=== PATIENT | female | born 1975 | race Hispanic/Latino ===

== ENCOUNTER 2018-03-27 18:00 | Outpatient (CLI) | payer BC | END 2018-03-27 18:01 | disposition home or self-care (01) | LOC: SLEEPLAB 18:00 | PROVIDERS: ATTEND Family Medicine | DX: G47.33 Obstructive sleep apnea (adult) (pediatric) (principal); R53.83 Other fatigue; R06.83 Snoring; I10 Essential (primary) hypertension; E66.9 Obesity, unspecified; Z68.41 Body mass index [BMI] 40.0-44.9, adult | CPT/HCPCS: 95806 ==

== ENCOUNTER 2018-03-28 15:14 | Outpatient (CLI) | payer BC | END 2018-03-28 15:15 | disposition home or self-care (01) | LOC: BICMAMMO 15:14 | PROVIDERS: ATTEND Family Medicine | DX: Z12.31 Encounter for screening mammogram for malignant neoplasm of breast (principal) | CPT/HCPCS: 77063; 77067 ==

== ENCOUNTER 2018-06-10 11:09 | Outpatient (CLI) | payer BC ==
[2018-06-10 12:52] LABS: #Basophils 0.1 thou/uL (0.0-0.2); #Eosinphils 0.1 thou/uL (0.0-0.7); #Monocytes 0.6 thou/uL (0.11-0.59); #Neutrophils 6.7 thou/uL (1.40-6.50); %Basophils 0.6 % (0.0-1.0); %Eosinophils 0.9 % (0.0-10.0); %Lymphocytes 35.2 % (21.0-51.0); %Neutrophils 58.3 % (42.0-75.0); Hemoglobin 13.8 g/dL (12.0-16.0); Mean Corpuscular HGB CONC 33.7 g/dL (32.0-36.0); Mean Corpuscular Hemoglobin 30.1 pg (27.0-31.0); Mean Corpuscular Volume 89.4 fL (78.0-98.0); Mean Platelet Volume 6.4 fL (7.4-10.4); Platelet Count 414 thou/uL (130-400); Red Blood Cell (RBC) Count 4.59 mill/uL (4.20-5.40); White Blood Cell (WBC) Count 11.5 thou/uL (4.8-10.8)
[2018-06-10 13:36] LABS: BHCG - Serum Negative (NEGATIVE); Pregs Control Background? CLEAR/WHITE (CLR/WHITE); Pregs Control Bar Appear? YES (CONTROL BAR)
--- NOTE | 2018-06-10 21:27 | EKG ---
Test Reason : Blood Pressure : / mmHG Vent. Rate : 070 BPM Atrial Rate : 070 BPM P-R Int : 132 ms QRS Dur : 098 ms QT Int : 426 ms P-R-T Axes : 026 098 051 degrees QTc Int : 460 ms Normal sinus rhythm Rightward axis Borderline ECG No previous ECGs available Confirmed by DANIEL SANTIAGO, DR. Vasquez ([id number]) on 06/10/2018 9:26:26 PM Referred By: VELMA Confirmed By:DR. Pedro SANCHEZ MD
== END 2018-06-10 11:10 | disposition home or self-care (01) ==
LOC: LABBT 11:09
PROVIDERS: ATTEND Surgery
DX: Z01.818 Encounter for other preprocedural examination (principal); D17.9 Benign lipomatous neoplasm, unspecified
CPT/HCPCS: 84703; 85025; 93005; 93010

== ENCOUNTER 2018-06-13 09:34 | Day surgery (SDC) | payer BC ==
[2018-06-10 12:11] VITALS: BMI 42.9
[2018-06-13] MEDS ORDERED: Bupivacaine/Epinephrine 0.25% 30 ML VIAL ONE (11:26)
[2018-06-13] MEDS ORDERED: Lidocaine 1% PF 5 ML VIAL ONE (11:27)
[2018-06-13] MEDS ORDERED: Fentanyl 100 MCG/2 ML VIAL ONE (11:27)
[2018-06-13] MEDS ORDERED: PHENYLEPHRINE-NS 100 MCG/ML 10 ML SYRINGE ONE (11:27)
[2018-06-13] MEDS ORDERED: PROPOFOL 200 MG/20 ML VIAL ONE (11:27)
[2018-06-13] MEDS ORDERED: Glycopyrrolate 0.2 MG/ML 5 ML SYRINGE ONE (11:27)
[2018-06-13] MEDS ORDERED: Ketorolac Tromethamine 30 MG/ML VIAL ONE (11:27)
[2018-06-13] MEDS ORDERED: Ondansetron PF 4 MG/2 ML Vial ONE (11:27)
[2018-06-13] MEDS ORDERED: Dexamethasone 20 MG/5 ML VIAL ONE (11:27)
[2018-06-13] MEDS ORDERED: Rocuronium Bromide 10 MG/ML (10ML VIAL) ONE (11:27)
[2018-06-13] MEDS ORDERED: HYDROcodone/Acetaminophen 5/325 mg Tablet ONE (13:33)
--- NOTE | 2018-06-16 11:14 | OP ---
DATE OF PROCEDURE: 06/13/2018 PREOPERATIVE DIAGNOSIS: Lipoma, left hip. PROCEDURE PERFORMED: Excisional biopsy. INDICATIONS: This is a 42-year-old female with a painful enlarging soft tissue mass of the left lateral hip. FINDINGS: It was a very deep multilobular lipoma, measured 5 x 5 x 3 cm. It is approximately 2 cm deep to the skin, but not involving the muscle. DESCRIPTION OF PROCEDURE: After informed consent was obtained, the patient was taken to the operating room and given general endotracheal anesthesia, placed in supine position. Hip was prepped and draped in usual fashion. Local anesthesia infiltrated subcutaneously and deep. A longitudinal incision was performed over the mass. Subcu divided sharply. The capsule was incised, and then using digital dissection, was able to get it out of the separate pocket, and excised. It was sent to Pathology for further analysis. Hemostasis achieved with electrocautery. Subcu was reapproximated with interrupted 3-0 Vicryl. Skin closed with a running subcuticular 4-0 Rapide. Steri-Strips applied. Sterile bandage applied. The patient tolerated the procedure well, transferred to Recovery in good condition. Sponge and needle count verified correct x2. Job ID: [id number]
== END 2018-06-13 14:40 | disposition home or self-care (01) ==
LOC: SDC 09:34
PROVIDERS: ATTEND Surgery
PROC: 0JBM0ZZ Excision of Left Upper Leg Subcutaneous Tissue and Fascia, Open Approach (ICD-10-PCS; principal; 2018-06-13)
DX: D17.39 Benign lipomatous neoplasm of skin and subcutaneous tissue of other sites (principal); I25.10 Atherosclerotic heart disease of native coronary artery without angina pectoris; G47.33 Obstructive sleep apnea (adult) (pediatric); G43.909 Migraine, unspecified, not intractable, without status migrainosus; I10 Essential (primary) hypertension; Z79.84 Long term (current) use of oral hypoglycemic drugs; Z79.899 Other long term (current) drug therapy
CPT/HCPCS: 88304; J1100; J1885; J2001; J2405; J2704; J3010

== ENCOUNTER 2020-05-03 15:42 | Outpatient (CLI) | payer BC ==
--- NOTE | 2020-05-03 16:20 | MMO ---
Bilateral MAMMO Bilat Screen [facility]. CLINICAL HISTORY: Patient is 44 years old and is seen for screening. The patient has the following family history of breast cancer: mother, at age 63, malignant (generic) and maternal aunt, malignant (generic), GREAT, X3. The patient has no personal history of cancer. VIEWS: The views performed were: bilateral craniocaudal with tomosynthesis and bilateral mediolateral oblique with tomosynthesis. FILMS COMPARED: The present examination has been compared to prior imaging studies performed at [facility] on 03/28/2018, and at [facility] on 10/21/2015. This study has been interpreted with the assistance of computer-aided detection. MAMMOGRAM FINDINGS: There are scattered fibroglandular densities. Finding 1: There is a nodule measuring 11 millimeters with circumscribed margins seen in the upper-outer region of the right breast. Finding 2: There are calcifications seen in the right breast. The calcifications have increased in number. In the left breast, there are no suspicious masses, calcifications or areas of architectural distortion. IMPRESSION: FINDING 1: NODULE IN THE RIGHT BREAST REQUIRES ADDITIONAL EVALUATION. AN ULTRASOUND EXAM IS RECOMMENDED. ADDITIONAL IMAGING. FINDING 2: CALCIFICATIONS IN THE RIGHT BREAST REQUIRE ADDITIONAL EVALUATION. SPOT MAGNIFICATION VIEW(S) ARE RECOMMENDED. THE RESULTS OF THIS EXAM WERE SENT TO THE PATIENT. ACR BI-RADS Category 0 - Incomplete: Need additional imaging evaluation. [facility] will notify the patient of the need for additional imaging services. MAMMOGRAPHY NOTE: 1. A negative mammogram report should not delay a biopsy if a dominant of clinically suspicious mass is present. 2. Approximately 10% to 15% of breast cancers are not detected by mammography. 3. Adenosis and dense breasts may obscure an underlying neoplasm. Reported by: JELENA RENTERIA MD Electonically Signed: [id number]
== END 2020-05-03 15:43 | disposition home or self-care (01) ==
LOC: BICMAMMO 15:42
PROVIDERS: ATTEND Family Medicine
DX: Z12.31 Encounter for screening mammogram for malignant neoplasm of breast (principal); R92.1 Mammographic calcification found on diagnostic imaging of breast; N63.11 Unspecified lump in the right breast, upper outer quadrant; Z80.3 Family history of malignant neoplasm of breast
CPT/HCPCS: 77063; 77067

== ENCOUNTER 2020-05-09 09:03 | Outpatient (CLI) | payer BC ==
--- NOTE | 2020-05-09 10:22 | MMO ---
Right Breast MAMMO Unilat Diag [facility]AT[facility]. CLINICAL HISTORY: Patient is 44 years old and is seen for diagnostic exam. The patient has the following family history of breast cancer: mother, at age 63, malignant (generic) and maternal aunt, malignant (generic), GREAT, X3. The patient has no personal history of cancer. VIEWS: The views performed were: right craniocaudal with tomosynthesis; right mediolateral oblique with tomosynthesis; and right mediolateral with tomosynthesis. FILMS COMPARED: The present examination has been compared to prior imaging studies performed at [facility] on 03/28/2018, 05/03/2020 and 05/09/2020, and at [facility] on 10/21/2015. This study has been interpreted with the assistance of computer-aided detection. MAMMOGRAM FINDINGS: There are scattered fibroglandular densities. Finding 1: There is a mass measuring 10 millimeters seen in the anterior region of the right breast at 9 o'clock. Not definitely seen on older mammograms. Finding 2: There are calcifications seen in the middle region of the right breast at 9 o'clock. Increased in number. IMPRESSION: FINDING 1: MASS IN THE RIGHT BREAST IS SUSPICIOUS. BIOPSY IS RECOMMENDED. FINDING 2: CALCIFICATIONS IN THE RIGHT BREAST ARE SUSPICIOUS. A STEREOTACTIC BREAST BIOPSY IS RECOMMENDED. FINDINGS DISCUSSED WITH DR. ALFREDO CARDENAS'S NURSE. THE RESULTS OF THIS EXAM WERE SENT TO THE PATIENT. ACR BI-RADS Category 4 - Suspicious abnormality - biopsy should be considered MAMMOGRAPHY NOTE: 1. A negative mammogram report should not delay a biopsy if a dominant of clinically suspicious mass is present. 2. Approximately 10% to 15% of breast cancers are not detected by mammography. 3. Adenosis and dense breasts may obscure an underlying neoplasm. Reported by: JELENA RENTERIA MD Electonically Signed: [id number]
--- NOTE | 2020-05-09 11:03 | ULT ---
RIGHT BREAST ULTRASOUND: Date: 05/09/2020 HISTORY: Evaluation of a nodule within the right breast, not definitely visualized on older mammogram studies of 10/21/2015. FINDINGS: Real-time imaging of the right breast at the 10 o'clock position, approximately 1-2 cm from the nippl e, confirms the presence of a fairly circumscribed, hypoechoic nodule measuring 8.0 mm in size, corre sponding in size and location to the mammographic finding. I think the features are most suggestive o f a solid lesion, although potentially this is a complex cyst. Evaluation of the axillary region fail ed to show any abnormalities. Given the fact that this nodule was not definitely present on the older 2016 exam, biopsy is recommen ded if cyst aspiration is unsuccessful. IMPRESSION: 1. BI-RADS Category 4 - Suspicious abnormality. Ultrasound-directed biopsy recommended. We will init ially attempt cyst aspiration and if this is unsuccessful, biopsy will be performed. 2. There are calcifications which have increased in number within the breast, could not be visualize d by ultrasound. Findings discussed with the patient and telephoned to Dr. Beltran.
--- NOTE | 2020-05-09 15:12 | MMO ---
FILMS COMPARED: The present examination has been compared to prior imaging studies performed at [facility] on 03/28/2018, 05/03/2020 and 05/09/2020. MAMMOGRAM FINDINGS: The breast is almost entirely fat. Clip adjacent to right breast mass. IMPRESSION: FINDING IN THE RIGHT BREAST IS CONFIRMED UTILIZING POST PROCEDURE MAMMOGRAM. Reported by: JELENA RETNERIA MD Electonically Signed: [id number]
--- NOTE | 2020-05-09 15:43 | ULT ---
ULTRASOUND DIRECTED BIOPSY OF HYPOECHOIC NODULE 8 MM IN SIZE WITHIN THE RIGHT BREAST 10 OCLOCK POSITI ON: PROCEDURE: After informed consent was obtained, the patient was prepped and draped in normal sterile fashion. L ocal anesthesia was obtained with 1% Xylocaine mixed with sodium bicarb. A small skin incision was m miracle with a #11 scalpel blade. Initially due to slightly hypoechoic appearance, attempted aspirate wi th an 18-gauge needle which was not successful. Subsequently, 5 core biopsies with a 14-gauge needle were performed. After the procedure, a biopsy clip was deployed. It shows that lesion on mammogram and ultrasound are concordant. IMPRESSION: Ultrasound-directed biopsy of right breast mass. No immediate complications of the procedure. POS: [facility]
== END 2020-05-09 09:04 | disposition home or self-care (01) ==
LOC: BICMAMMO 09:03
PROVIDERS: ATTEND Family Medicine
DX: N63.11 Unspecified lump in the right breast, upper outer quadrant (principal); R92.0 Mammographic microcalcification found on diagnostic imaging of breast
CPT/HCPCS: 19083; 88305; G0279

== ENCOUNTER → 2020-05-20 | Day surgery (SDC) | payer BC | LOC: MAMMO 07:34 | PROVIDERS: ATTEND Family Medicine | PROC: 0H9T0ZX Drainage of Right Breast, Open Approach, Diagnostic (ICD-10-PCS; principal; 2020-05-20) | DX: N64.89 Other specified disorders of breast (principal); R92.0 Mammographic microcalcification found on diagnostic imaging of breast | CPT/HCPCS: 19081; 76098; 88305 ==

== ENCOUNTER 2020-08-04 16:58 | Outpatient (CLI) | payer BC ==
[2020-08-04 18:04] LABS: #Basophils 0.1 10x3/uL (0.0-0.2); #Eosinphils 0.1 10x3/uL (0.0-0.5); #Monocytes 0.8 10x3/uL (0.0-1.1); #Neutrophils 9.5 10x3/uL (1.5-8.4); %Basophils 0.4 % (0.0-2.0); %Eosinophils 0.5 % (0.0-6.0); %Lymphocytes 26.5 % (18.0-47.0); %Monocytes 5.3 % (0.0-10.0); %Neutrophils 66.9 % (40.0-75.0); Hemoglobin 13.3 g/dL (12.0-15.5); Mean Corpuscular HGB CONC 33.3 g/dL (32.0-36.0); Mean Corpuscular Hemoglobin 29.6 pg (27.0-33.0); Mean Corpuscular Volume 88.7 fl (81.6-98.3); Mean Platelet Volume 9.3 fl (7.4-10.4); Platelet Count 408 10x3/uL (150-450); RBC Distribution Width 13.2 % (11.5-14.5); White Blood Cell (WBC) Count 14.2 10x3/uL (3.5-10.5)
[2020-08-04 18:11] LABS: Anion Gap 14 mmol/L (10-20); BUN (Urea Nitrogen) 12 mg/dL (7.0-18.7); Calc. Creatinine Clearance 0 mL/min (70-130); Calcium 9.8 mg/dL (7.8-10.44); Carbon Dioxide 24 mmol/L (22-29); Chloride 101 mmol/L (98-107); Glucose 138 mg/dL (70-105); Potassium 3.8 mmol/L (3.5-5.1); Sodium 135 mmol/L (136-145)
[2020-08-05 02:41] LABS: SARS-CoV-2 NAA Rapid Test Not Detected (NotDetected)
== END 2020-08-04 16:59 | disposition home or self-care (01) ==
LOC: LABBT 16:58
PROVIDERS: ATTEND Surgery
DX: Z01.818 Encounter for other preprocedural examination (principal); R92.8 Other abnormal and inconclusive findings on diagnostic imaging of breast; D24.1 Benign neoplasm of right breast
CPT/HCPCS: 80048; 85025; 87635; U0002; U0003; U0005

== ENCOUNTER 2020-08-09 08:26 | Day surgery (SDC) | payer BC ==
[2020-08-04 15:36] VITALS: BMI 42.0
[2020-08-09] MEDS ORDERED: Lidocaine 1% w/Epinephrine 1:100K 20 ML VIAL ONE (10:47)
[2020-08-09] MEDS ORDERED: Bupivacaine PF 0.5% 30 ML VIAL ONE (10:47)
[2020-08-09] MEDS ORDERED: Fentanyl 100 MCG/2 ML VIAL ONE (11:37)
[2020-08-09] MEDS ORDERED: PROPOFOL 200 MG/20 ML VIAL ONE (11:58)
[2020-08-09] MEDS ORDERED: Ondansetron PF 4 MG/2 ML Vial ONE (11:58)
[2020-08-09] MEDS ORDERED: Dexamethasone 20 MG/5 ML VIAL ONE (11:58)
[2020-08-09] MEDS ORDERED: Lidocaine 1% PF 5 ML VIAL ONE (11:58)
[2020-08-09] MEDS ORDERED: HYDROcodone/Acetaminophen 5/325 mg Tablet ONE (14:04)
== END 2020-08-09 15:03 | disposition home or self-care (01) ==
LOC: SDC 08:26
PROVIDERS: ATTEND Surgery
PROC: 0HBT0ZZ Excision of Right Breast, Open Approach (ICD-10-PCS; principal; 2020-08-09)
DX: D24.1 Benign neoplasm of right breast (principal); N60.21 Fibroadenosis of right breast; G43.909 Migraine, unspecified, not intractable, without status migrainosus; I10 Essential (primary) hypertension; G47.33 Obstructive sleep apnea (adult) (pediatric); R73.03 Prediabetes; Z79.899 Other long term (current) drug therapy
CPT/HCPCS: 19281; 76098; 88307; J0690; J1100; J2405; J2704; J3010; S0020

== ENCOUNTER 2023-06-19 15:35 | Outpatient (CLI) | payer BC, OTHER | END 2023-06-19 15:36 | disposition home or self-care (01) | LOC: DTY/OP 15:35 | PROVIDERS: ATTEND Family Medicine | DX: E11.9 Type 2 diabetes mellitus without complications (principal) | CPT/HCPCS: 97802 ==